=== PATIENT | female | born 1975 ===

== ENCOUNTER 2016-12-19 10:04 | Day surgery (SDC) | payer OTHER ==
[2016-12-19] MEDS ORDERED: Lactated Ringer's 500 ML IV ONE (10:16)
[2016-12-19] MEDS ORDERED: Propofol 10 mg/ml Inj (20 ML) ONE (10:37)
[2016-12-19 10:55] VITALS: TEMP 97
[2016-12-19 11:08] VITALS: BP 128/78; PULSE 99; RESP 16; O2SAT 100
== END 2016-12-19 11:23 | disposition home or self-care (01) ==
LOC: H.ENDO 10:04
PROVIDERS: ATTEND Internal Medicine Gastroenterology
DX: K30 Functional dyspepsia (principal); G47.33 Obstructive sleep apnea (adult) (pediatric); K44.9 Diaphragmatic hernia without obstruction or gangrene